=== PATIENT | female | born 1945 | race Caucasian/White ===

== ENCOUNTER 2019-06-02 12:24 | Emergency (ER) | payer OTHER ==
[~2019-06-02] VITALS: Ht 149.9 cm; Wt 62.1 kg
[2019-06-02 12:31] VITALS: BP_SYST 127; BP_SYST 154; BP_DIAS 100; BP_DIAS 83
--- NOTE | 2019-06-02 12:34 | NUR ---
PT TAKEN TO ER LOBBY TO WAIT FOR AVAILABLE BED.
--- NOTE | 2019-06-02 13:31 | NUR ---
PT TAKEN TO BED 4.
--- NOTE | 2019-06-02 13:36 | NUR ---
PT PRESENTS TO EMERGENCY ROOM WITH C/O ANXIETY ATTACKS FOR THE LAST 2 DAYS; WORSE LAST NIGHT. DENIES ANY SOB OR CHEST PAIN. ERMD TO EVALUATE PT.
--- NOTE | 2019-06-02 13:47 | NUR ---
DR. LEONARDO BEDSIDE EVALUATING PT
[2019-06-02] MEDS ORDERED: LORazepam 0.5 MG TAB PO ONE (14:05)
[2019-06-02 14:41] VITALS: BP 160/88
--- NOTE | 2019-06-02 14:42 | NUR ---
Patient discharged with v/s stable. Written and verbal after care instructions given and explained. Patient verbalized understanding. Ambulatory with steady gait. All questions addressed prior to discharge. Advised to follow up with PMD.
== END 2019-06-02 14:42 | disposition home or self-care (01) ==
LOC: MED 12:24
DX: F41.9 Anxiety disorder, unspecified (principal); F13.20 Sedative, hypnotic or anxiolytic dependence, uncomplicated; R42 Dizziness and giddiness
CPT/HCPCS: 99284

== ENCOUNTER 2019-11-24 18:56 | Emergency (ER) | payer OTHER ==
[~2019-11-24] VITALS: Ht 149.9 cm; Wt 60.8 kg
[2019-11-24 18:59] VITALS: BP 122/80
--- NOTE | 2019-11-24 19:20 | NUR ---
PMH: DEPRESSION, ANXIETY, RA.
--- NOTE | 2019-11-24 19:20 | NUR ---
74 Y/O FEMALE C/O CHEST PAIN X 1840 TODAY. PT WAS BIBA, HEART SOUNDS S1S2 PRESENT. CAP REFILL < 3, NO EDEMA PRESENT. DENIES ANY N,V,SOB, OR FEVER. LUNG SOUNDS CLEAR ALL THROUGHOUT. PT STATES THE PAIN RADIATES FROM LEFT SIDE OF JAW TO LEFT SIDE OF SHOULDER TO LEFT SIDE OF CHEST. RATES PAIN 8/10 AND DESCRIBES IT SHARP. PT STATES SHE TOOK 4 CHEWABLE ASPIRIN 81MG TAB BEFORE CALLING 911. VSS. A & O X4. NKA. PMH: GERD, HIGH CHOLESTEROL, CATARACTS SURGERY.
[2019-11-24] MEDS ORDERED: MORPHINE SULFATE 4 MG/ML SYR IVP ONE (19:35)
[2019-11-24] MEDS ORDERED: ONDANSETRON 4 MG/2 ML VIAL IVP ONE (19:35)
--- NOTE | 2019-11-24 19:44 | NUR ---
XR AT BEDSIDE.
--- NOTE | 2019-11-24 19:47 | NUR ---
Dr. Del Cid examining patient.
[2019-11-24 20:49] LABS: BASOPHILS # (AUTO) 0.1 K/uL (0.00-0.22); EOSINOPHILS # (AUTO) 0.1 K/uL (0-0.4); HEMATOCRIT 33.9 % (36-48); LYMPHOCYTES # (AUTO) 1.5 K/uL (2.5-16.5); LYMPHOCYTES % (AUTO) 29.4 % (20.5-51.1); MEAN CORPUSCULAR HEMOGLOBIN 28 pg (27-31); MEAN CORPUSCULAR HGB CONC 32 g/dL (33-37); MEAN CORPUSCULAR VOLUME 87.4 fL (80-94); MONOCYTES # (AUTO) 0.5 K/uL (0.8-1.0); MONOCYTES % (AUTO) 11.1 % (1.7-9.3); NEUTROPHILS # (AUTO) 2.7 K/uL (1.8-7.7); NEUTROPHILS % (AUTO) 55.5 % (42.2-75.2); PLATELET COUNT (AUTO) 242 K/uL (140-450); RED BLOOD CELL COUNT(AUTO) 3.88 MIL/uL (4.20-5.40); RED CELL DISTRIBUTION WIDTH 15.6 % (11.6-13.7); WHITE BLOOD COUNT (AUTO) 4.9 K/uL (4.8-10.8)
[2019-11-24 20:53] LABS: ALBUMIN 3.5 g/dL (3.4-5.0); ANION GAP 12.5 (8-16); ASPARTATE AMINOTRANSFERASE 15 U/L (15-37); CARBON DIOXIDE 27.7 mmol/L (21-32); CHLORIDE 106 mmol/L (98-107); CREATININE 0.6 mg/dL (0.6-1.3); GLUCOSE 98 mg/dL (74-106); POTASSIUM 4.2 mmol/L (3.5-5.1); SODIUM SERUM 142 mmol/L (136-145); TOTAL BILIRUBIN 0.2 mg/dL (0.0-1.0); UREA NITROGEN, BLOOD 21 mg/dL (7-18)
[2019-11-24 20:57] LABS: PROTHROMBIN TIME 10.3 secs (10.8-13.4)
[2019-11-24 21:38] LABS: APPEARANCE,URINE CLEAR (CLEAR); BILIRUBIN,URINE NEGATIVE (NEGATIVE); BLOOD, URINE NEGATIVE (NEGATIVE); COLOR,URINE YELLOW (YELLOW); LEUKOCYTE ESTERASE ,URINE NEGATIVE (NEGATIVE); NITRITE, URINE NEGATIVE (NEGATIVE); UGLUCOSE NEGATIVE (NEGATIVE)
--- NOTE | 2019-11-24 22:43 | NUR ---
PT TRANSFER TO CT [facility]IA [facility].
--- NOTE | 2019-11-24 22:54 | NUR ---
PT RETURNED FROM CT VIA [facility].
--- NOTE | 2019-11-24 23:38 | NUR ---
LAB AT BEDSIDE FOR REPEAT TROP.
[2019-11-25 00:47] VITALS: BP 143/75
== END 2019-11-25 00:46 | disposition home or self-care (01) ==
LOC: MED 18:56
DX: R07.9 Chest pain, unspecified (principal); E86.0 Dehydration; R42 Dizziness and giddiness; R53.1 Weakness; H92.02 Otalgia, left ear; K21.9 Gastro-esophageal reflux disease without esophagitis; F41.9 Anxiety disorder, unspecified; Z98.890 Other specified postprocedural states
CPT/HCPCS: 36415; 71045; 71275; 80053; 81003; 83880; 84484; 85025; 85379; 85610; 85730; 93005; 96374; 96375; 99285; J2270; J2405; Q0092; Q9967

== ENCOUNTER 2022-07-14 18:55 | Emergency (ER) | payer OTHER ==
[~2022-07-14] VITALS: Ht 149.9 cm; Wt 61.9 kg
[2022-07-14 19:57] VITALS: BP 190/93
--- NOTE | 2022-07-14 20:00 | NUR ---
PT TO [facility] WAITING FOR BED.
[2022-07-14 20:20] LABS: BASOPHILS # (AUTO) 0.1 K/uL (0.00-0.22); BASOPHILS % (AUTO) 1.1 % (0.0-2.0); EOSINOPHILS # (AUTO) 0.1 K/uL (0-0.4); EOSINOPHILS % (AUTO) 2.2 % (0.0-4.0); HEMATOCRIT 37.3 % (36-48); HEMOGLOBIN 12.4 g/dL (12.0-16.0); LYMPHOCYTES # (AUTO) 1.6 K/uL (2.5-16.5); LYMPHOCYTES % (AUTO) 25.7 % (20.5-51.1); MEAN CORPUSCULAR HEMOGLOBIN 29 pg (27-31); MEAN CORPUSCULAR HGB CONC 33 g/dL (33-37); MEAN CORPUSCULAR VOLUME 85.9 fL (80-94); MONOCYTES # (AUTO) 0.8 K/uL (0.8-1.0); MONOCYTES % (AUTO) 12.5 % (1.7-9.3); NEUTROPHILS # (AUTO) 3.7 K/uL (1.8-7.7); NEUTROPHILS % (AUTO) 58.5 % (42.2-75.2); PLATELET COUNT (AUTO) 265 K/uL (140-450); RED BLOOD CELL COUNT(AUTO) 4.34 MIL/uL (4.20-5.40); WHITE BLOOD COUNT (AUTO) 6.3 K/uL (4.8-10.8)
[2022-07-14 20:34] LABS: ALBUMIN 3.3 g/dL (3.4-5.0); ANION GAP 15.8 (8-16); ASPARTATE AMINOTRANSFERASE 23 U/L (15-37); CARBON DIOXIDE 25.2 mmol/L (21-32); CHLORIDE 106 mmol/L (98-107); CREATININE 0.7 mg/dL (0.6-1.3); GLUCOSE 90 mg/dL (74-106); SODIUM SERUM 143 mmol/L (136-145); TOTAL BILIRUBIN 0.2 mg/dL (0.0-1.0); UREA NITROGEN, BLOOD 19 mg/dL (7-18)
[2022-07-14 20:45] LABS: PROTHROMBIN TIME 9.8 secs (10.8-13.4)
--- NOTE | 2022-07-14 22:07 | NUR ---
CAMILLE DUQUE ASSESSING PT
--- NOTE | 2022-07-14 22:36 | NUR ---
PATIENT AMBULATED TO RR
--- NOTE | 2022-07-14 22:42 | NUR ---
PT TO 7
[2022-07-14 22:43] LABS: APPEARANCE,URINE CLEAR (CLEAR); BILIRUBIN,URINE NEGATIVE (NEGATIVE); BLOOD, URINE NEGATIVE (NEGATIVE); COLOR,URINE YELLOW (YELLOW); LEUKOCYTE ESTERASE ,URINE NEGATIVE (NEGATIVE); NITRITE, URINE NEGATIVE (NEGATIVE); UGLUCOSE NEGATIVE (NEGATIVE)
--- NOTE | 2022-07-14 23:10 | NUR ---
ULTRASOUND AT BEDSIDE
--- NOTE | 2022-07-15 01:03 | NUR ---
PT RESTING RESP EVEN AND UNLABORED.
--- NOTE | 2022-07-15 01:47 | NUR ---
77YR OLD FEMALE BIB SELF C/O LEFT LEG PAIN X1DAY. PT HAS HX OF BLOOD CLOTS. LEG IS COOL TO TOUCH. NO REDDNESS NOTED. PAIN LEVEL 5/10. PT IS A&OX4. RESP EVEN AND UNLABORED. SKIN WARM DRY AND INTACT. NKDA BLOOD CLOTS
[2022-07-15 03:16] VITALS: BP 95/50
--- NOTE | 2022-07-15 04:30 | NUR ---
PENDING CT RESULTS
[2022-07-15] MEDS ORDERED: NAPR-54 PO (05:22)
--- NOTE | 2022-07-15 05:24 | NUR ---
DR DUQUE AT BEDSIDE PT PENDING DISPO
== END 2022-07-15 05:20 | disposition home or self-care (01) ==
LOC: MED 18:55
DX: M79.604 Pain in right leg (principal); R25.2 Cramp and spasm; J44.9 Chronic obstructive pulmonary disease, unspecified; K21.9 Gastro-esophageal reflux disease without esophagitis; Z79.899 Other long term (current) drug therapy
CPT/HCPCS: 36415; 71275; 80053; 81003; 85025; 85379; 85610; 85730; 93970; 99285; Q0092; Q9967

== ENCOUNTER 2024-08-08 11:08 | Emergency (ER) | payer OTHER ==
[~2024-08-08] VITALS: Ht 160 cm; Wt 63.5 kg
[~2024-08-08 11:08] MED LIST: NAPR-337 PO
[2024-08-08 11:17] VITALS: BP 155/78; PULSE 72; RESP 18; TEMP 97.3; O2SAT 92
[2024-08-08] MEDS: KETOROLAC 30 MG/ML VIAL IVP ONE (13:08)
[2024-08-08] MEDS ORDERED: LID5T TP (13:41)
[2024-08-08] MEDS ORDERED: DICL20GE TP (13:41)
[2024-08-08 14:30] VITALS: BP 155/78; PULSE 72; RESP 18; TEMP 97.3; O2SAT 92
== END 2024-08-08 14:30 | disposition home or self-care (01) ==
LOC: MED 11:08
DX: M19.012 Primary osteoarthritis, left shoulder (principal); J44.9 Chronic obstructive pulmonary disease, unspecified; K21.9 Gastro-esophageal reflux disease without esophagitis; F41.9 Anxiety disorder, unspecified; Z79.899 Other long term (current) drug therapy
CPT/HCPCS: 73030; 96374; 99283; J1885